=== PATIENT | female | born 1985 | race Caucasian/White ===

== ENCOUNTER → 2016-10-25 | Outpatient (CLI) | payer OTHER ==
--- NOTE | 2016-10-25 17:01 | REP ---
Clinical: Anatomical evaluation. Comparison: 08/19/2016 . Findings: Examination demonstrates a single live intrauterine in cephalic presentation. motion is identified by technologist. Placenta is noted posterior fundally and grade one without evidence for placenta previa or abruption. Amniotic fluid volume is normal. Cervix measures 3.5 cm in length and appears closed. No evidence for nuchal cord. Gestational age by LMP 29 weeks 0 days with KURT 01/10/2017 . Gestational age by current measurements 27 weeks 5 days. FHR equals 150 beats per minute. Estimated weight 1187 grams (40th percentile by first ultrasound ). Amniotic fluid index equals 10 cm (9.4 - 22.9). Anatomical assessment demonstrates normal structures including cranium, choroid plexus, cerebellum/posterior fossa, lungs, four-chamber heart/ left ventricular outflow tract, diaphragm, stomach, cord insertion/three-vessel cord, kidneys/bladder, and spine. Impression: 1. Single live intrauterine in cephalic presentation demonstrating appropriate interval growth when compared to first ultrasound. 2. Right ventricular outflow tract is again limited in evaluation. 3. In conjunction with prior examination anatomical assessment is otherwise complete and normal. Signed by Doron Hess MD 10/25/2016 04:53 P
== END ==
LOC: M LRY 14:01
PROVIDERS: ATTEND Nurse Practitioner Women's Health
DX: Z34.92 Encounter for supervision of normal pregnancy, unspecified, second trimester (principal); Z36 Encounter for antenatal screening of mother

== ENCOUNTER → 2016-12-09 | Outpatient (CLI) | payer OTHER ==
--- NOTE | 2016-12-09 11:18 | REP ---
Follow-up obstetric ultrasonography for reevaluation of the cardiac right ventricular outflow tract: Comparisons are 08/19/206810/25 2016. There is a single intrauterine gestation in a vertex presentation. There is movement and cardiac activity with a heart rate of 128 beats per minute. The placenta is posterior and fundal with no previa or abruptio with grade 2 maturity. Amniotic fluid volume subjectively is normal. The cervix is shadowed by the head and cannot be measured. The amniotic fluid index is 13.9 ( 8.0 - 24.9). By the ultrasound today the gestational age is 35 weeks 0 days . By the first ultrasound during this gestation is 34 weeks 5 days, and by LMP is 35 weeks 3 days. weight is 2621 grams (5 pounds, 12 ounces). This is the 57th percentile for 34 weeks 5 days and 46 percentile for 35 weeks 3 days. Umbilical artery Doppler assessment: SD ratio 2.12 (2.00 - 3.00) Resistive index 0.55 (0.59 - 0.75) Diastolic flow velocity 15.4 cm/sec (normal) The cardiac right ventricular outflow tract is satisfactorily visualized and unremarkable. The remainder of the anatomy previously was unremarkable and is not reevaluated. Signed by Adrien Goldstein MD 12/09/2016 11:09 A
== END ==
LOC: M LRY 08:41
PROVIDERS: ATTEND Nurse Practitioner Women's Health
DX: Z34.93 Encounter for supervision of normal pregnancy, unspecified, third trimester (principal); Z36 Encounter for antenatal screening of mother; Z3A.35 35 weeks gestation of pregnancy

== ENCOUNTER → 2017-06-02 | Outpatient (REF) | payer OTHER ==
[2017-06-02 12:02] LABS: MEAN CORPUSCULAR HEMOGLOBIN 29.1 pg (27.0-33.0); MEAN CORPUSCULAR VOLUME 88.3 fl (80.0-96.0); RED CELL DISTRIBUTION WIDTH 13.3 % (11.5-14.5)
[2017-06-02 12:15] LABS: THYROID PEROXIDASE ANTIBODY > 1300.0 U/ML (<60.0)
[2017-06-02 12:24] LABS: ALBUMIN 4.1 GM/DL (3.2-5.2); ALBUMIN/GLOBULIN RATIO 1.32 (1.00-1.93); ALKALINE PHOSPHATASE 35 U/L (45-117); ALT/SGPT 31 U/L (12-78); ANION GAP 8 MEQ/L (8-16); AST/SGOT 18 U/L (15-37); BILIRUBIN,TOTAL 0.6 MG/DL (0.2-1.0); BLOOD UREA NITROGEN 11 MG/DL (7-18); CALCIUM LEVEL 8.9 MG/DL (8.5-10.1); CARBON DIOXIDE LEVEL 29 MEQ/L (21-32); CHLORIDE LEVEL 103 MEQ/L (98-107); CHOLESTEROL LEVEL 247 MG/DL (<200); CREATININE FOR GFR 0.86 MG/DL (0.55-1.02); FERRITIN 30 NG/ML (8-252); FREE T4 0.79 NG/DL (0.76-1.46); GLOMERULAR FILTRATION RATE > 60.0 (>60); GLUCOSE, FASTING 76 MG/DL (70-105); POTASSIUM SERUM 4.4 MEQ/L (3.5-5.1); SODIUM LEVEL 140 MEQ/L (136-145); TOTAL PROTEIN 7.2 GM/DL (6.4-8.2); TRIGLYCERIDES LEVEL 38 MG/DL (<150)
== END ==
LOC: M SFHCCLAY 09:36
PROVIDERS: ATTEND Family Medicine
DX: E06.3 Autoimmune thyroiditis (principal); Z00.00 Encounter for general adult medical examination without abnormal findings

== ENCOUNTER → 2017-07-24 | Outpatient (CLI) | payer OTHER ==
[~2017-07-24] MED LIST: ISOVUE-370 76% 100ML VIAL (Q9967) As Ordered ONE
--- NOTE | 2017-07-25 08:59 | REP ---
CT NECK WITH CONTRAST: HISTORY: Enlarged lymph node. CONTRAST: Isovue 370, 75 mL. Calcifications are present in the tonsils. This is secondary to previous inflammatory disease. The naso-, albina- and hypopharynx, larynx and subglottic trachea are otherwise normal in appearance. The salivary glands are normal in size and density. The thyroid gland is heterogeneous in density. A 4 mm hypodensity is present in the left thyroid lobe. An enlarged lymph node 1.1 cm in width is present in the right internal jugular chain at the level of the albina- and hypopharynx. An enlarged lymph node 1.2 cm in width is present in the left internal jugular chain a the level of the oropharynx. Small lymph nodes less than 1 cm in size are present in the posterior triangles and submandibular areas. The lung apices are clear. Mucosal thickening is present in the ethmoid and maxillary sinuses. IMPRESSION: 1. There are slightly enlarged lymph nodes in the internal jugular chains as described above.2. The thyroid gland is heterogeneous in density. A 4 mm hypodensity is present in the left thyroid lobe. This may represent a cyst. Ultrasound may be helpful for further evaluation. Signed by Francisco Gutierrez MD 07/25/2017 09:28 A
== END ==
LOC: M RAD 18:14
PROVIDERS: ATTEND Specialist
DX: R59.0 Localized enlarged lymph nodes (principal)
CPT/HCPCS: 70491; Q9967

== ENCOUNTER → 2017-11-21 | Outpatient (REF) | payer OTHER | LOC: M SFHCLERA 08:55 | DX: Z00.00 Encounter for general adult medical examination without abnormal findings (principal); E06.3 Autoimmune thyroiditis; Z53.9 Procedure and treatment not carried out, unspecified reason ==

== ENCOUNTER → 2017-11-21 | Outpatient (CLI) | payer OTHER ==
[2017-11-21 11:47] LABS: BASO % 0.4 % (0.0-1.0); EOS # 0.2 10^3/uL (0.0-0.50); EOS % 2.7 % (0.0-3.0); HEMATOCRIT 38.7 % (36.0-47.0); HEMOGLOBIN 12.6 g/dl (12.0-16.0); IMMATURE GRANULOCYTE % 0.4 % (0-3.0); LYMPH # 2.3 10^3/uL (1.5-4.5); LYMPH % 42.7 % (24.0-44.0); MEAN CORPUSCULAR HEMOGLOBIN 28.7 pg (27.0-33.0); MEAN CORPUSCULAR HGB CONC 32.6 g/dl (32.0-36.5); MEAN CORPUSCULAR VOLUME 88.2 fl (80.0-96.0); MONO # 0.5 10^3/uL (0.0-0.8); MONO % 8.2 % (0.0-5.0); NEUTROPHILS # 2.5 10^3/uL (1.8-7.7); NEUTROPHILS % 45.6 % (36.0-66.0); PLATELET COUNT, AUTOMATED 211 10^3/uL (150-450); RED BLOOD COUNT 4.39 10^6/uL (4.00-5.40); RED CELL DISTRIBUTION WIDTH 13.6 % (11.5-14.5); WHITE BLOOD COUNT 5.5 10^3/uL (4.0-10.0)
[2017-11-21 12:25] LABS: PROGESTERONE 20.9 NG/ML
[2017-11-21 12:25] LABS: THYROID PEROXIDASE ANTIBODY 627.6 U/ML (<60.0)
[2017-11-21 12:26] LABS: FOLLICLE STIMULATING HORMONE 3.7 mIU/mL; LUTEINIZING HORMONE 3.5 mIU/mL; TOTAL T3 100.7 NG/DL (60.0-181.0)
[2017-11-21 12:35] LABS: FREE T4 0.84 NG/DL (0.76-1.46)
[2017-11-23 00:09] LABS: TESTOSTERONE FREE (DIRECT) 1.3 pg/mL (0.0-4.2)
== END ==
LOC: M LRY 09:16
DX: Z00.00 Encounter for general adult medical examination without abnormal findings (principal); E06.3 Autoimmune thyroiditis
CPT/HCPCS: 83001